=== PATIENT | female | born 1955 | race African-American/Black ===

== ENCOUNTER 2023-06-12 10:48 | Emergency (ER) | payer MEDICARE, SELFPAY ==
[~2023-06-12 10:48] MED LIST: Lidocaine 2% PF 100 mg/5 ml Syringe ONE
[2023-06-12] MEDS ORDERED: levETIRAcetam 500 MG/5 ML VIAL ONE (11:12)
[2023-06-12] MEDS ORDERED: niCARdipine 25 MG/10 ML SDV ONE ×2 (11:14→11:24)
[2023-06-12 11:16] LABS: #Basophils 0.1 10x3/uL (0.0-0.2); #Eosinphils 0.2 10x3/uL (0.0-0.5); #Monocytes 0.4 10x3/uL (0.0-1.1); #Neutrophils 9.9 10x3/uL (1.5-8.4); %Basophils 0.6 % (0.0-2.0); %Eosinophils 1.2 % (0.0-6.0); %Lymphocytes 12.7 % (18.0-47.0); %Monocytes 3.5 % (0.0-10.0); %Neutrophils 81.8 % (40.0-75.0); Hematocrit 45.1 % (34.9-44.5); Hemoglobin 14.9 g/dL (12.0-15.5); Mean Corpuscular Hemoglobin 30.2 pg (27.0-33.0); Mean Corpuscular Volume 91.5 fl (81.6-98.3); Mean Platelet Volume 9.3 fl (7.4-10.4); Platelet Count 686 10x3/uL (150-450); Red Blood Cell (RBC) Count 4.93 10x6/uL (3.90-5.03); White Blood Cell (WBC) Count 12.1 10x3/uL (3.5-10.5)
[2023-06-12] MEDS ORDERED: fentaNYL 50 mcg/mL 1 mL Vial ONE (11:19)
[2023-06-12] MEDS ORDERED: Rocuronium Bromide 10 MG/ML (10ML VIAL) ONE (11:20)
[2023-06-12] MEDS ORDERED: Sodium Chloride 0.9% 250 ML 250 ML ONE (11:24)
[2023-06-12 11:26] LABS: PTT 28.9 sec (22.0-33.0); Prothrombin Time 10.9 sec (9.5-12.1)
[2023-06-12 11:28] LABS: ALT (SGPT) 25 U/L (8-55); AST (SGOT) 38 U/L (5-34); Albumin 4.4 g/dL (3.4-4.8); Alkaline Phosphatase 76 U/L (40-110); Anion Gap 18 mmol/L (10-20); BUN (Urea Nitrogen) 9 mg/dL (9.8-20.1); Bilirubin, Total 1.6 mg/dL (0.2-1.2); Calc. Creatinine Clearance 0 mL/min (70-130); Calcium 9.7 mg/dL (7.8-10.44); Carbon Dioxide 23 mmol/L (23-31); Chloride 106 mmol/L (98-107); Estimated GFR 89; Globulin 2.4 g/dL (2.4-3.5); Glucose 164 mg/dL (80-115); Potassium 4.6 mmol/L (3.5-5.1); Protein, Total 6.8 g/dL (5.8-8.1); Sodium 142 mmol/L (136-145)
[2023-06-12 11:28] LABS: Acetaminophen Less than 10 mcg/mL (10.0-30.0); Alcohol Less than 10.0 mg/dL (Less than 10); Salicylate Less than 8.0 mg/dL (15.0-30.0)
[2023-06-12 11:37] LABS: Troponin I 0.243 ng/mL (< 0.028)
[2023-06-12] MEDS ORDERED: Mannitol 12.5 GM/50 ML IV SCH (12:00)
[2023-06-12] MEDS ORDERED: manNITOL 20% 0 ML ONE (12:06)
[2023-06-12] MEDS ORDERED: manNITOL 20% 500 ML IVPB SCH (12:15)
[2023-06-12 12:23] LABS: Bilirubin Neg (Negative); Blood, Urine 250 (Negative); Clarity Slightly Cloudy (Clear); Glucose, Urine (Dipstick) Normal (Negative); Ketone, Urine Negative (Negative); Leukocyte Negative (Negative); Nitrite Negative (Negative); Protein, Urine (Dipstick) 500 mg/dl (Neg-Trace); Urobilinogen Normal mg/dL (Less than 2)
[2023-06-12 12:30] LABS: Amphetamine Not Detected (NotDetected); Bacteria/HPF 1+ HPF (None Seen); Barbiturates Screen Not Detected (NotDetected); Benzodiazepine Screen Not Detected (NotDetected); CAUTI Indications for Culture Alt mental st,lethar; Cocaine Metabolite Screen Not Detected (NotDetected); Methadone Not Detected (NotDetected); Methamphetamine Not Detected (NotDetected); Opiate Screen Not Detected (NotDetected); Oxycodone Screen Not Detected (NotDetected); Phencyclidine (PCP) Not Detected (NotDetected); RBC/HPF 21-50 HPF (0-3); Squamous Epithelial 0-3 HPF (0-3); THC/Cannabinoid Screen Not Detected (NotDetected); Tricyclic Screen Not Detected (NotDetected); WBC/HPF 0-3 HPF (0-3)
[2023-06-12 12:30] LABS: Base Excess (BEa) 1.6 mEq/L (-2.0 to +3.0); CO2 Tension 35.8 mmHg (35.0-45.0); Calcium, Ionized (arterial) 1.17 mmol/L (1.12-1.30); Carboxyhemoglobin (COHb) 0.3 gm% (0.0-3.0); Hematocrit-ABG 46 % (36.0-47.0); Hemoglobin (Hb) 15.5 g/dL (12.0-16.0); Potassium - ABG Lab 3.53 mmol/L (3.70-5.30); Puncture Site LRA; pH, Arterial 7.462 (7.35-7.45)
[2023-06-12 12:31] LABS: Urine Culture Reflex No No
== END 2023-06-12 12:26 | disposition short-term general hospital (02) ==
LOC: CSHERS 10:48
DX: I62.9 Nontraumatic intracranial hemorrhage, unspecified (principal); I21.4 Non-ST elevation (NSTEMI) myocardial infarction; E87.20 Acidosis, unspecified; I10 Essential (primary) hypertension; Z87.891 Personal history of nicotine dependence; Z79.899 Other long term (current) drug therapy; Z79.82 Long term (current) use of aspirin
CPT/HCPCS: 31500 ×2; 36600; 70450; 71045; 72125; 80053; 80306; 80307; 81001; 82805; 82962; 83605; 84484; 85025; 85610; 85730; 93005; 94002; 94760; 96374; 96375; 99291; J1953; J3010; 36415; 36416; J2001; J2150; J7050; J7799